=== PATIENT | female | born 1990 | race Caucasian/White ===

== ENCOUNTER 2018-03-13 19:34 | Inpatient (IN) | payer OTHER ==
[~2018-03-13] VITALS: Ht 157.5 cm; Wt 2.7 kg
[2018-03-13] MEDS ORDERED: PRENATAL TABLE1 EACH PO (20:18)
== END 2018-03-17 13:22 | DRG 788 ==
LOC: LDR 19:34 → OB/GYN 03-14 19:48
PROVIDERS: Obstetrics & Gynecology
PROC: 4A1HXCZ Monitoring of Products of Conception, Cardiac Rate, External Approach (ICD-10-PCS; 2018-03-13)
PROC: 10D00Z1 Extraction of Products of Conception, Low, Open Approach (ICD-10-PCS; principal; 2018-03-14 17:00)
DX: O33.8 Maternal care for disproportion of other origin (principal); Z3A.40 40 weeks gestation of pregnancy; Z37.0 Single live birth